=== PATIENT | female | born 1955 | race Caucasian/White ===

== ENCOUNTER 2017-11-11 17:10 | Emergency (ER) | payer OTHER ==
[~2017-11-11] VITALS: Ht 157.5 cm; Wt 90.7 kg
[~2017-11-11 17:10] MED LIST: ADULT LOW DOSE81 MG PO; ATROVENT HFA14 GM INH; AZITHROMYCIN 2250 MG PO; CARISOPRODOL; CIPROFLOXACIN500 M1 PO; DOXYCYCLINE; DOXYCYCLINE HYC50 MG PO; LISINOPRIL-HCT1 EAC1 PO; LISINOPRIL20 MG PO; MEDROLDOSEPACK PO; MUCUS ER600 MG PO; PERCOCET 5-3251 EACH PO; PREDNISONE 10 M10 MG PO; PYRIDIUM200 MG PO; SIMVASTATIN40 MG PO; TESSALON PERLE100 MG PO; VICODIN; ZOCOR
[2017-11-11] MEDS ORDERED: ONDANSETRON HCL4 M2 PO (17:25)
[2017-11-11] MEDS ORDERED: GLUCOTROL5 MG PO (17:25)
[2017-11-11] MEDS ORDERED: DOXYCYCLINE HYC50 MG PO (17:35)
[2017-11-11] MEDS ORDERED: CALCITRIOL0.25 MCG PO (17:35)
[2017-11-11] MEDS ORDERED: TOPROL XL25 MG PO (17:36)
[2017-11-11] MEDS ORDERED: NEURONTIN 300300 M1 PO (17:36)
[2017-11-11] MEDS ORDERED: DITROPAN XL5 M1 PO (17:37)
[2017-11-11 18:17] LABS: URINE BILIRUBIN NEGATIVE (Negative); URINE BLOOD NEGATIVE (Negative); URINE CLARITY CLEAR; URINE COLOR YELLOW; URINE GLUCOSE-RANDOM NEGATIVE (Negative); URINE KETONES NEGATIVE (Negative); URINE LEUKOCYTES 1+ (Negative); URINE NITRITE NEGATIVE (Negative); URINE PROTEIN NEGATIVE (Negative); URINE SPECIFIC GRAVITY <= 1.005 (1.005-1.030); URINE UROBILINOGEN 0.2 E.U./dl (0.2-1.0)
[2017-11-11 18:25] LABS: BACTERIA 1-9 Few /HPF (None Seen); SQUAMOUS 4-10 Moderate /LPF (0-3); URINE RBC None Seen /HPF (0-2); URINE WBC 0-5 Rare /HPF (0-5)
[2017-11-11 18:26] LABS: CASTS None Seen /LPF (None Seen); CRYSTALS None Seen /LPF (None Seen)
[2017-11-11 18:29] LABS: ABSOLUTE BASOPHILS 0.1 thou/uL (0.0-0.2); ABSOLUTE EOSINOPHILS 0.2 thou/uL (0.0-0.7); ABSOLUTE MONOCYTES 0.6 thou/uL (0.0-1.2); ABSOLUTE NEUTROPHILS 3.8 thou/uL (1.6-8.1); BASOPHILS 1.1 %; EOSINOPHILS 2.7 %; HEMATOCRIT 40.3 % (37.0-47.0); HEMOGLOBIN 13.4 gm/dL (12.0-15.0); LYMPHOCYTES 30.7 %; MCH 29.2 pg (26.0-34.0); MCHC 33.2 g/dL (28.0-37.0); MCV 87.9 fL (80.0-100.0); MONOCYTES 8.6 %; MPV 7.7 fl. (7.2-11.1); NUCLEATED RBCS 0 /100WBC; PLATELET COUNT* 373 thou/uL (150-400); POLYS 56.9 %; RBC 4.59 mil/uL (4.20-5.00); WBC 6.6 thou/uL (4.0-11.0)
[2017-11-11 18:34] LABS: CALCIUM 9.7 mg/dL (8.5-10.1); CREATININE 1.3 mg/dL (0.6-1.3); POTASSIUM 3.9 mmol/L (3.5-5.1)
[2017-11-11 18:39] LABS: ALBUMIN 4.1 g/dL (3.4-5.0); TOTAL BILIRUBIN 0.5 mg/dL (<0.1-1.0); TOTAL PROTEIN 8.1 g/dL (6.4-8.2)
[2017-11-11] MEDS ORDERED: PHENERGAN 25 MG25 M1 PO (20:03)
[2017-11-11] MEDS ORDERED: CIPRO500 MG PO (20:04)
[2017-11-11 20:16] VITALS: BP 149/75
== END 2017-11-11 20:17 | disposition home or self-care (01) ==
LOC: M.ERS 17:10
PROVIDERS: Nurse Practitioner Family
DX: N39.0 Urinary tract infection, site not specified (principal); R19.7 Diarrhea, unspecified; R11.2 Nausea with vomiting, unspecified; E78.00 Pure hypercholesterolemia, unspecified; N18.3 Chronic kidney disease, stage 3 (moderate); Z88.8 Allergy status to other drugs, medicaments and biological substances